=== PATIENT | male | born 1955 | race Caucasian/White ===

== ENCOUNTER → 2024-03-06 09:05 | Outpatient (REF) | payer MEDICARE, SELFPAY ==
[2024-03-06 12:39] LABS: % Basophils 0.9 % (0-2); % Eosinophils 2.7 % (0-6); % Immature Granulocytes 0.2 % (0-0.5); % Monocytes 9.1 % (1.7-9.3); % Neutrophils 66.1 % (42.2-75.2); Absolute Basophils 0.1 10^3/uL (0-0.2); Absolute Eosinophils 0.2 10^3/uL (0-0.7); Absolute Lymphocytes 1.2 10^3/uL (1.2-3.4); Absolute Monocytes 0.5 10^3/uL (0.1-0.6); Absolute Neutrophils 3.9 10^3/uL (1.4-6.5); Hematocrit 43.8 % (39.0-52.0); Hemoglobin 14.6 g/dL (13.0-18.0); Mean Corp Hgb Conc. 33.3 g/dL (33.0-37.0); Mean Corpuscular Hgb 30.2 pg (27.0-31.0); Mean Corpuscular Volume 90.7 fL (80.0-94.0); Mean Platelet Volume 9.6 fL (7.4-10.4); Nucleated Red Blood Cells % 0 % (-); Platelet Count 307 10^3/uL (130-400); Red Blood Cell Count 4.83 10^6/uL (4.70-6.10); Red Cell Dist. Width 12.4 % (11.5-14.5); White Blood Cell Count 5.9 10^3/uL (4.8-10.8)
[2024-03-06 12:58] LABS: ALT (SGPT) 14 U/L (0-50); AST (SGOT) 25 U/L (17-59); Albumin 4.3 g/dl (3.5-5.0); Alkaline Phosphatase 80 U/L (38-126); Blood Urea Nitrogen 13 mg/dl (9-20); Calcium 9.4 mg/dl (8.4-10.2); Carbon Dioxide 27 mmol/L (22-30); Chloride 102 mmol/L (98-107); Glucose 99 mg/dl (70-99); HDL Cholesterol 44 mg/dl; LDL Cholesterol, Calculated 107 mg/dl; Potassium 4.4 mmol/L (3.5-5.1); Sodium 136 mmol/L (135-145); Total Bilirubin 0.6 mg/dl (0.2-1.3); Total Cholesterol 175 mg/dl (50-199); Total Protein 7.1 g/dl (6.3-8.2); Triglyceride 123 mg/dl (10-149); Very Low Density Lipoprotein 24 mg/dl (0-30); eGFR > 60.00
[2024-03-06 13:18] LABS: PSA, Total - Screen 2.37 ng/ml (0.0-4.0)
== END ==
LOC: HWLAB 09:05
PROVIDERS: ATTENDING PHYSICIAN Internal Medicine
DX: Z00.00 Encounter for general adult medical examination without abnormal findings (principal); E66.9 Obesity, unspecified; K51.90 Ulcerative colitis, unspecified, without complications; G47.33 Obstructive sleep apnea (adult) (pediatric); Z12.5 Encounter for screening for malignant neoplasm of prostate; Z85.828 Personal history of other malignant neoplasm of skin; R35.1 Nocturia
CPT/HCPCS: 36415; 80053; 80061; 85025; G0103

== ENCOUNTER → 2025-02-14 09:15 | Outpatient (REF) | payer MEDICARE, SELFPAY ==
[2025-02-14 11:28] LABS: % Basophils 0.8 % (0-2); % Eosinophils 6.8 % (0-6); % Lymphocytes 18.7 % (20.5-51.1); % Monocytes 11.7 % (1.7-9.3); Absolute Eosinophils 0.4 10^3/uL (0-0.7); Absolute Monocytes 0.6 10^3/uL (0.1-0.6); Absolute Neutrophils 3.2 10^3/uL (1.4-6.5); Hematocrit 43.3 % (39.0-52.0); Hemoglobin 14.4 g/dL (13.0-18.0); Mean Corp Hgb Conc. 33.3 g/dL (33.0-37.0); Mean Corpuscular Hgb 30.1 pg (27.0-31.0); Mean Corpuscular Volume 90.4 fL (80.0-94.0); Mean Platelet Volume 9.1 fL (7.4-10.4); Nucleated Red Blood Cells % 0 % (-); Platelet Count 282 10^3/uL (130-400); Red Blood Cell Count 4.79 10^6/uL (4.70-6.10); Red Cell Dist. Width 13.1 % (11.5-14.5); White Blood Cell Count 5.1 10^3/uL (4.8-10.8)
[2025-02-14 12:09] LABS: ALT (SGPT) 15 U/L (0-50); AST (SGOT) 22 U/L (17-59); Alkaline Phosphatase 76 U/L (38-126); Blood Urea Nitrogen 15 mg/dl (9-20); Calcium 9.3 mg/dl (8.4-10.2); Carbon Dioxide 28 mmol/L (22-30); Chloride 103 mmol/L (98-107); Glucose 102 mg/dl (70-99); HDL Cholesterol 43 mg/dl; LDL Cholesterol, Calculated 111 mg/dl; Potassium 4.2 mmol/L (3.5-5.1); Sodium 140 mmol/L (135-145); Total Bilirubin 0.8 mg/dl (0.2-1.3); Total Cholesterol 170 mg/dl (50-199); Total Protein 6.8 g/dl (6.3-8.2); Triglyceride 83 mg/dl (10-149); Very Low Density Lipoprotein 16 mg/dl (0-30); eGFR > 60.00
[2025-02-14 16:51] LABS: PSA, Total - Screen 2.42 ng/ml (0.0-4.0); TSH Reflex To Free T4 1.56 uIU/ml (0.47-4.68)
== END ==
LOC: HWLAB 09:15
PROVIDERS: ATTENDING PHYSICIAN Internal Medicine
DX: K51.90 Ulcerative colitis, unspecified, without complications (principal); G47.33 Obstructive sleep apnea (adult) (pediatric); Z12.5 Encounter for screening for malignant neoplasm of prostate; E66.9 Obesity, unspecified; R35.1 Nocturia; R19.4 Change in bowel habit
CPT/HCPCS: 36415; 80053; 80061; 84443; 85025; G0103

== ENCOUNTER → 2025-02-21 10:36 | Outpatient (REF) | payer MEDICARE, SELFPAY | LOC: HWLAB 10:36 | PROVIDERS: ATTENDING PHYSICIAN Internal Medicine; FAMILY PHYSICIAN Internal Medicine | DX: K51.319 Ulcerative (chronic) rectosigmoiditis with unspecified complications (principal) | CPT/HCPCS: 83993 ==

== ENCOUNTER 2025-03-05 06:19 | Day surgery (SDC) | payer MEDICARE, SELFPAY | END 2025-03-05 12:15 | disposition home or self-care (01) | LOC: GI 06:19 | PROVIDERS: ATTENDING PHYSICIAN Internal Medicine | DX: K51.90 Ulcerative colitis, unspecified, without complications (principal) | CPT/HCPCS: 45380; 88305; 88342 ==

== ENCOUNTER → 2025-09-07 08:16 | Outpatient (REF) | payer MEDICARE, SELFPAY ==
[2025-09-10 02:06] LABS: Calprotectin, Fecal 216 ug/g (<=49)
== END ==
LOC: HWLAB 08:16
PROVIDERS: ATTENDING PHYSICIAN Internal Medicine; FAMILY PHYSICIAN Family Medicine
DX: K51.319 Ulcerative (chronic) rectosigmoiditis with unspecified complications (principal)
CPT/HCPCS: 83993; 87045; 87046; 87328; 87329; 87427

== ENCOUNTER 2025-09-11 08:58 | Inpatient (IN) | payer MEDICARE, SELFPAY ==
[2025-09-11] VITALS (10 sets, daily range): BP systolic 123–169; BP diastolic 66–112; BMI 33.5; BMI 31.6
[2025-09-11] MEDS: NSS 1000 IV ×3 (06:15→23:21)
--- NOTE | 2025-09-11 06:27 | ED.GENMED ---
History of Present Illness
General
Chief Complaint: Abdominal Pain
Source: patient
Exam Limitations: none
Time Seen by Provider: 09/11/25 06:02
Nursing documentation reviewed up to this point in time: agreed with
History of Present Illness
History of Present Illness:
69-year-old male with a past medical history of ulcerative colitis presents to the ER with his for evaluation of abdominal pain and constipation. Patient reports that last week he started to notice a small amount of blood in his stools; he
says that this is typically his presentation for ulcerative colitis flare in the past. He follows with Dr. Tobar for gastroenterology and informed his GI doctor about the symptoms�he was sent for an outpatient stool study which he provided on
Wednesday. He was prescribed mesalamine suppository and steroids but was told to hold off on taking these until stool study was finalized to rule out infection. He had not yet received the results of the stool study and so has not started these
medications. Over the weekend on Wednesday he began having abdominal pain and abdominal pain has persisted since then. He says he has been constipated and has not passed a stool and is passing minimal gas since Wednesday. Came to the ER for
evaluation. He describes cramping pain across the lower abdomen worse on the left side. He reports constipation and obstipation. He reports no nausea or vomiting. He denies fever or chills. He denies any other acute complaints. Review of
outpatient stool studies from 09/07/2025 shows that they were negative for acute infection.
Review of Systems
Review of Systems
All Other Systems: ROS reviewed and negative except as documented in HPI and ROS
Constitutional: Denies fever or chills
Respiratory: Denies trouble breathing
Cardiac: Denies chest pain
ABD/GI: Reports abdominal pain and constipated; Denies nausea, vomiting or diarrhea
: Denies flank pain
Musculoskeletal: Denies neck pain
Neurological: Denies headache
Phy Exam
Physical Exam
Physical Exam:
General: Awake, alert, oriented x3; no acute distress
Head: Normocephalic, atraumatic
Eyes: Conjunctiva normal, sclera anicteric
Throat: Airway intact, handling secretions
Neck: Trachea midline, supple without meningismus
Lungs: Clear to auscultation bilaterally, no wheezing, rales, rhonchi
Heart: Regular rate and rhythm, no murmurs, gallops, or rubs
Abd: Normoactive bowel sounds, soft, mildly distended, minimally tender in the left lower quadrant
Neuro: Grossly intact
Skin: Warm and dry
Extremities: No edema in extremities, warm and well-perfused
Scores
Heart Failure Risk
Heart Failure Risk Score: Not Applicable
Heart Score for Chest Pain Patients
STEMI patient?: Not applicable
Withdrawal Assessment of Alcohol
Withdrawal Assessment Completed?: Not applicable
Course
Orders/Labs/Results
Orders:
Orders
09/11/25 06:03
CT Abd/pelvis W Iv Cont Urgent
Comment:
Reason For Exam: abd pain, constipation
0.9% Sodium Chloride 1000 ml [Nss] 1,000 ml IV BOLUS
09/11/25 06:13
Comprehensive Metabolic Panel Urgent
Lipase Urgent
09/11/25 06:14
Complete Blood Count/With Diff Urgent
09/11/25 06:27
Morphine Sulfate 2 mg IV NOW STA
09/11/25 07:47
Consult Urology [UROLOGY CONSULT] Urgent
Consulting Provider: Toni Vera
Was physician already notified: Yes
Urinalysis Reflex To Culture Urgent
Abnormal Lab Results
09/11/25
06:14
Absolute Lymphs (auto) 1.0 L 10^3/uL
(1.2-3.4)
Absolute Monos (auto) 1.3 H 10^3/uL
(0.1-0.6)
Lymphocytes % 11.2 L %
(20.5-51.1)
Monocytes % 14.2 H %
(1.7-9.3)
09/11/25 06:14
09/11/25 06:13
Vital Signs
Initial and Last Documented VS:
Initial Vital Signs
Temp Pulse Resp BP Pulse Ox
36.4 C 75 18 169/112 98
09/11/25 05:49 09/11/25 05:49 09/11/25 05:49 09/11/25 05:49 09/11/25 05:49
Last Documented Vital Signs
Temp Pulse Resp BP Pulse Ox
36.4 C 75 18 167/96 97
09/11/25 05:49 09/11/25 05:49 09/11/25 05:49 09/11/25 06:11 09/11/25 06:33
MDM/Problems Addressed
Differential Diagnosis Includes:
Colitis/UC flare, constipation, bowel obstruction, diverticulitis, nephrolithiasis/UTI
MDM/Problems Addressed:
69-year-old male with history of ulcerative colitis presents with constipation and abdominal pain for the past few days; last week had some scant bloody stools and there was concern for early UC flare but he has not yet started treatment pending his
stool studies sent last week (I was able to review these results today and they were negative for infection). Hypertensive otherwise normal vitals. Physical exam as above. Plan to check labs including a CBC and a CMP, lipase. Provide fluids and
pain control. Check CT abdomen and pelvis. Reassess at the above.
Labs reviewed: CBC unremarkable, CMP no clinically significant abnormalities. CT abdomen pelvis shows very large 1.3 cm obstructive stone in the left ureter with hydronephrosis�suspect that this is the etiology of his pain. He does have some
constipation but no bowel obstruction. Urinalysis added. He is still having significant pain we will provide some additional pain medication. Case discussed with urology for consultation. Recommended n.p.o. for OR later today. Case discussed
with hospitalist for admission.
Chronic conditions affecting care:
Ulcerative colitis
Acute Exacerbation and/or Progression of Chronic Illness:
Acutely hypertensive�likely pain related, will treat pain but no indication for emergent hypertensives
Acute Exacerbation and/or Progression of Chronic Illness: HTN
*Radiology
Radiology exam reviewed: radiology read reviewed
*Pulse Oximetry
SaO2: 97
Oxygen Mode of Delivery: Room air
Patient hypoxic: no (97%)
*Critical Care Note
Total Time (30-74mins, 75-104mins- exclusive of procedures): Not Applicable
Data Reviewed
Source: patient, records and spouse
Patient Management
Discussion with other providers: Hospitalist (Discussed with hospitalist) and Plant Care Worker (Discussed with urologist)
Escalation/DeEscalation of care consider admission/obs:
Admission indicated
ED Attending Note
-
Portions of this chart may have been created with voice recognition software.� Occasional wrong word or��sound alike� substitutions may have occurred due to the inherent limitations of voice recognition software.
Discharge Plan
Departure
Patient Disposition: Admit
Date of Disposition: 09/11/25
Time of Disposition: 07:56
Admit to doctor: Miguel
Presentation/result/management discussed w/ accepting MD/DO: Hospitalist
Discharge Problem:
Left nephrolithiasis, Constipation
Referrals:
Gisselle Chanel DO [Family Provider, Family Practice]
Interventions
Interventions:
*Risk Screen - Suicide Last Done: 09/11/25 05:49
*General Assessment Last Done: 09/11/25 06:10
*Neglect/Abuse Screening Last Done: 09/11/25 06:10
*ED- Fall Risk Assessment Last Done: 09/11/25 06:10
*ED COVID-19 Vaccine History Last Done: 09/11/25 05:53
*ED Influenza Vaccine History Last Done: 09/11/25 05:53
XO-Bghzpc-Bfsopfqmez Assessment Last Done: 09/11/25 06:20
Discharge Date and Time
Print Language: VIETNAMESE
[2025-09-11 06:36] LABS: Hematocrit 43.6 % (39.0-52.0); Hemoglobin 14.9 g/dL (13.0-18.0); Mean Corp Hgb Conc. 34.2 g/dL (33.0-37.0); Mean Corpuscular Volume 87.6 fL (80.0-94.0); Nucleated Red Blood Cells % 0 % (-); Platelet Count 298 10^3/uL (130-400); Red Cell Dist. Width 12.9 % (11.5-14.5)
[2025-09-11] MEDS: MORPHINE SULFATE 2 MG IV (06:41)
[2025-09-11 06:42] LABS: ALT (SGPT) 12 U/L (0-50); AST (SGOT) 19 U/L (17-59); Albumin 4.4 g/dl (3.5-5.0); Alkaline Phosphatase 78 U/L (38-126); Blood Urea Nitrogen 18 mg/dl (9-20); Calcium 9.2 mg/dl (8.4-10.2); Carbon Dioxide 29 mmol/L (22-30); Chloride 102 mmol/L (98-107); Estimated Creatinine Clearance 74 ml/min; Glucose 93 mg/dl (70-99); Lipase 152 U/L (23-300); Potassium 4.0 mmol/L (3.5-5.1); Sodium 136 mmol/L (135-145); Total Protein 7.6 g/dl (6.3-8.2); eGFR > 60.00
--- NOTE | 2025-09-11 08:09 | HPS.HSE ---
Family Physician
-
Family Physician: Gisselle Chanel DO
Chief Complaint
-
Abdominal pain
History of Present Illness
69-year-old male with past medical history of ulcerative colitis (diagnosed 18 years ago), BPH presents to the ER reporting abdominal pain and constipation. Patient started to notice small amount of blood in the stools 3 days ago, thought it might
be because of his ulcerative colitis flare. He follows up with Dr. Tobar for gastroenterology who sent outpatient stool study on Wednesday. He was prescribed mesalamine suppositories/steroids but he has not started taking these medications. Patient
began to have abdominal pain in the left lower quadrant since 3 days, radiating to the groin. Patient reports he has not had a bowel movement since 3 days, minimal amount of gas.he took MiraLAX twice, without any relief. Patient denies any
nausea/vomiting, fever/chills, chest pain, SOB, hematemesis, hematuria. Patient was admitted in the hospital only once, for ulcerative colitis flare at the time of initial diagnosis. No history of intra-abdominal surgeries. Patient reports that
he has been drinking less water, as he is concerned about his BPH.
ED course�elevated blood pressure reading 167/96 at presentation, afebrile. Blood work unremarkable, urinalysis pending. He was given IV fluids, morphine, Dilaudid for pain.
Abdomen/pelvis CT with evidence of 1.3 cm proximal left ureteral calculus with mild left hydro utero nephrosis.
Medical History
Past Medical History
Past Medical History: Reports Other (Ulcerative colitis)
Past Surgical History: Reports None
Social History
Tobacco: Non-smoker
Alcohol: None
Drug: None
Personal:
Living: With Family
Employment: Employed
Family History
Family History: Not pertinent (Mom - colitis)
Allergies / Home Medications
Allergies reflects when Allergies were last updated in [employer].
Home Medications with original date entered in [employer]
Allergy/Medication List:
Allergies
Allergy/AdvReac Type Severity Reaction Status Date / Time
No Known Allergies Allergy Verified 09/11/25 06:23
Review of Systems
-
A 12 point ROS was completed and negative except as noted: Yes
Physical Exam
Vital Signs
Vital Signs
Temp Pulse Resp BP Pulse Ox
97.6 F 75 18 167/96 97
09/11/25 05:49 09/11/25 05:49 09/11/25 05:49 09/11/25 06:11 09/11/25 06:33
Physical Exam
General: Well Developed, Well Nourished and Pain
HEENT: NormoCephalic and Atraumatic
Respiratory: Clear
Cardiac: S1/S2
GI: Soft, Normal Bowel Sounds, Tender (Very mild tenderness to palpation in the left lower quadrant. No guarding, rigidity.) and Distended
Genito-urinary: No costovertebral tender
Skin: Warm and Dry
Neuro: Awake, Alert, Oriented and AO x 3
Laboratory Results
-
09/11/25 06:14
09/11/25 06:13
Laboratory Results
Total Bilirubin 0.8 mg/dl (0.2-1.3) 09/11/25 06:13
AST 19 U/L (17-59) 09/11/25 06:13
ALT 12 U/L (0-50) 09/11/25 06:13
Alkaline Phosphatase 78 U/L (38-126) 09/11/25 06:13
Lipase 152 U/L (23-300) 09/11/25 06:13
Impression/Plan
-
IMPRESSION: 69-year-old male with ulcerative colitis, BPH presenting with left lower abdominal pain and constipation.
PLAN:
#Abdominal pain
#Left ureteral calculus
Normal white count, afebrile
Renal function normal
Urinalysis -microscopic hematuria, no evidence of infection.
CT evidence of 1.3 cm proximal left ureteral calculus with associated mild left hydroureteronephrosis.
Urology consulted
Plan for OR today
IV fluids
Adequate pain control
NPO
Will give a dose of prophylactic antibiotic Ancef 2 g IV ,before OR
#Constipation
CT abdomen pelvis�no evidence of obstruction/inflammatory changes. Moderate right colonic stool burden.
Will do MiraLAX
#Ulcerative colitis
Continue mesalamine 2.4 mg twice daily
#BPH
Not on medications
Diet�n.p.o.
DVT prophylaxis�SCDs
Full code
[2025-09-11] MEDS: DILAUDID 1 MG IV (08:28)
[2025-09-11 08:29] LABS: Urine Character Clear (Clear)
[2025-09-11 09:01] LABS: Urine Urothelial Cell 0-2 /LPF (FEW)
[2025-09-11 09:02] LABS: Urine Red Blood Cell 26-30 /HPF (0-2)
--- NOTE | 2025-09-11 09:23 | W.PN.URO.CBU ---
Today's Communication / Plan
-
for op room today npo
Assessment / Plan
-
left uretral stone for cysto stent possible laser Consented and discussed decisions for surgery alt tx plans side effects comploications
Diagnosis
-
Date of Service: September 11, 2025
-
Patient Diagnosis:13 mm left ureteral stone with intractable
Post Op Day:
Subjective
-
colic no fever nor chills
Objective
-
Vital Signs
Temp Pulse Resp BP Pulse Ox
97.6 F 75 18 167/96 97
09/11/25 05:49 09/11/25 05:49 09/11/25 05:49 09/11/25 06:11 09/11/25 06:33
Laboratory Results
09/11/25 06:14
09/11/25 06:13
Review of Systems
-
Abdomen/GI: Nausea
: Flank Pain
Physical Exam
-
General - well developed, well nourished, no acute distress non toxic
Chest - clear bilaterally
Abdomen - soft, non-tender, positive bowel sounds, no CVAT, no incisional pain or distention
Genitalia - normal
Rectal - normal
Skin - warm & dry with no rash
Neuro - AOx3, no motor deficits
Extremities - no clubbing, no cyanosis, no edema
Incision - clean, dry
Dressing - clean, dry, intact
Counseling
-
for op room today
Care Review
Data Reviewed
Discussed with: Hospitalist, Nursing and Family
CT Scan: Image Pers Reviewed
[2025-09-11] MEDS: ANCEF 10 IV (09:50)
--- NOTE | 2025-09-11 09:53 | CM ---
Chart reviewed and spoke with patient and Yudy at ED bedside
Lives in a 2 story home with . 4 small PAT
Independent with ADLs, ambulation and drives
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
DME CPAP
PCP Dr. Gisselle Chanel
RX plan yes
Pharmacy [facility]
no hx of SNF nor VN
DCP is to go home
can drive
CM will continue to follow up for any dcp needs
--- NOTE | 2025-09-11 09:57 | W.PN.UPDATE ---
Update Note
Progress Note Update
I interviewed and examined the patient. Discussed with Dr. Campo and agree with findings and plan as documented in note.
69 years old male presented with abdominal pain. Patient reported he was having constipation. He felt abdominal discomfort could be related to ulcerative colitis flareup. He took laxative without relief. No nausea or vomiting. In the ER, CAT
scan showed 1.3 cm proximal left ureteral calculus with mild left hydronephrosis. Patient did not have fever or chills. No dysuria. No leukocytosis on admission
Physical Exam
General: Well Developed, Well Nourished and Pain
HEENT: NormoCephalic and Atraumatic
Respiratory: Clear
Cardiac: S1/S2
GI: Soft, Normal Bowel Sounds, Tender (Very mild tenderness to palpation in the left lower quadrant. No guarding, rigidity.) and Distended
Genito-urinary: No costovertebral tender
Skin: Warm and Dry
Neuro: Awake, Alert, Oriented and AO x 3
Psych;'calm
# Left renal colic causing abdominal pain
#Left ureteral calculus
Normal white count, afebrile
Renal function normal
Urinalysis -microscopic hematuria, no evidence of infection.
CT evidence of 1.3 cm proximal left ureteral calculus with associated mild left hydroureteronephrosis.
Urology consulted
Plan for OR today
IV fluids
Adequate pain control
NPO
Will give a dose of prophylactic antibiotic Ancef 2 g IV ,before OR
#Constipation
CT abdomen pelvis�no evidence of obstruction/inflammatory changes. Moderate right colonic stool burden.
Will do MiraLAX
#Ulcerative colitis
Continue mesalamine 2.4 mg twice daily
#BPH
Not on medications
Diet�n.p.o.
DVT prophylaxis�SCDs
Full code
Total time spent to see the patient, examined the patient, review of data and lab result, discuss treatment plan with patient, nursing staff, patient's , ER doctor around 75 minutes
[2025-09-11] MEDS: NON-FORMULARY ITEM PO (10:45)
--- NOTE | 2025-09-11 15:29 | W.IMMPOSTOP ---
Surgical Immed Post Op Note
-
Primary Surgeon:
alicia
Assisting Surgeon:
Pre-op Diagnosis:
left ureteral stone
Post-op Diagnosis:
same
Procedure Performed:
cysto/left retrograde/stone manipulation/stent
Anesthesia Type:
gen
Specimen / Cultures:
none
Estimated Blood Loss:
2cc
Complications:
none
Operative Findings:
BPH with large median lobe
high/large stone
stent placed
to pacu in stable condition
once medically stable/bowel issues resolved- discharge with outpt f/u with dr pearl to schedule second stage procedure
[2025-09-11] MEDS: FLOMAX 0.4 MG PO (15:47)
[2025-09-11] MEDS: FLOMAX PO (16:16)
[2025-09-11] MEDS: DILAUDID 0.5 MG IV (17:06)
[2025-09-11] MEDS: MIRALAX 17 GRAMS PO (19:53)
[2025-09-11] MEDS: NON-FORMULARY ITEM 2 UNIT PO (19:57)
[2025-09-12] MEDS: NSS 1000 IV (06:31)
[2025-09-12 07:00] VITALS: BP 127/73
[2025-09-12] MEDS: FLOMAX 0.4 MG PO (08:05)
[2025-09-12] MEDS: NON-FORMULARY ITEM 1 UNIT PO (08:05)
[2025-09-12] MEDS: METAMUCIL, KONSYL 1 PACKET PO (08:05)
[2025-09-12] MEDS: VISBIOME 1 CAP PO (08:05)
[2025-09-12] MEDS: MIRALAX 17 GRAMS PO (08:05)
[2025-09-12 08:34] LABS: Hematocrit 39.9 % (39.0-52.0); Hemoglobin 13.0 g/dL (13.0-18.0); Mean Corp Hgb Conc. 32.6 g/dL (33.0-37.0); Mean Corpuscular Volume 90.9 fL (80.0-94.0); Platelet Count 287 10^3/uL (130-400); Red Cell Dist. Width 12.7 % (11.5-14.5)
[2025-09-12 10:01] LABS: Blood Urea Nitrogen 14 mg/dl (9-20); Calcium 8.8 mg/dl (8.4-10.2); Carbon Dioxide 25 mmol/L (22-30); Chloride 104 mmol/L (98-107); Estimated Creatinine Clearance 85 ml/min; Glucose 102 mg/dl (70-99); Potassium 4.3 mmol/L (3.5-5.1); Sodium 134 mmol/L (135-145); eGFR > 60.00
--- NOTE | 2025-09-12 10:07 | W.PN.HOSP.TC ---
Addendum entered and electronically signed by Bk Leung MD 09/12/25 17:25:
Addendum
Discharge nurse went to discharge patient but he reported he was having abdominal cramps and was not comfortable going home. Concern regarding flareup of ulcerative colitis.
I saw the patient again. He had good large bowel movement, nonbloody after rectal suppository. He is feeling better but having cramps. I talked to his a primary horseradish grinder. Will do GI evaluation before discharge
End
Addendum entered and electronically signed by Bk Leung MD 09/12/25 14:51:
Addendum
Had BM, will dc
Original Note:
Today's Communication/Plan
-
Patient wants to have BM before dc
Assessment / Plan
Assessment / Plan
Physical Exam
General: Well Developed, Well Nourished and Pain
HEENT: NormoCephalic and Atraumatic
Respiratory: Clear
Cardiac: S1/S2
GI: Soft, Normal Bowel Sounds, no tenderness, pt feels still mildly distended.
Genito-urinary: No costovertebral tender
Skin: Warm and Dry
Neuro: Awake, Alert, Oriented and AO x 3
Psych;'calm
# Left renal colic causing abdominal pain
#Left ureteral calculus
s/p Cystoscopy, left retrograde pyelogram and stone manipulation, stent placement by DR Sauceda 09/11. No complications reported. Patient is doing much better. Discussed with urologist, okay to go home. No evidence of
Active UTI. No need for antibiotics. Started on Flomax. For outpatient follow-up
#Constipation
No abd pain or nausea
CT abdomen pelvis�no evidence of obstruction/inflammatory changes. Moderate right colonic stool burden.
did MiraLAX BID, will do suppository / Enema. pt wants to have BM before leaving
He is walking around
had IVF
#Ulcerative colitis
Continue mesalamine 2.4 mg twice daily
#BPH
Not on medications
Diet�n.p.o.
DVT prophylaxis�SCDs
Full code
Total time spent to see the patient, examined the patient, review of data and lab result, discuss discharge plan with patient, of pt, urologist, nursing staff around 67 minutes
Anticipated Discharge: Today
Subjective/Interval History
-
Date of Service: September 12, 2025
He feels better
No abdominal pain
Mild dysuria at times
He reports constipation
Objective Data
-
Labs:
Laboratory Results
09/12/25
07:41
WBC 8.2
Hgb 13.0
Hct 39.9
Plt Count 287
Sodium 134 L
Potassium 4.3
Chloride 104
Carbon Dioxide 25
BUN 14
Creatinine 0.9
Glucose 102 H
Calcium 8.8
Vital Signs:
Vital Signs
Temp Pulse Resp BP Pulse Ox
97.6 F 55 16 127/73 99
09/12/25 07:00 09/12/25 07:00 09/12/25 07:00 09/12/25 07:00 09/12/25 07:00
I&O
09/11/25 09/12/25 09/13/25
06:59 06:59 06:59
Intake Total 1055 / 1055
Output Total 225 / 225
Balance 830 / 830
[2025-09-12] MEDS: DULCOLAX 10 MG RECTAL (10:29)
--- NOTE | 2025-09-12 11:50 | W.PN.URO.CBU ---
Today's Communication / Plan
-
ready for d/c when ok by hospitalist
Assessment / Plan
-
left uretral stone s/p j stent has stent pain but colic gone willschedue defintve surgery next 2wweks as haylie has lg median lobe with urinary frequncy to start
Diagnosis
-
Date of Service: September 12, 2025
-
Patient Diagnosis:
Post Op Day:
Patient Diagnosis:13 mm left ureteral stone with intractable pain
Post Op Day:
Subjective
-
colic gone s/p jj stent but freqincy urgency
Objective
-
Vital Signs
Temp Pulse Resp BP Pulse Ox
97.6 F 55 16 127/73 99
09/12/25 07:00 09/12/25 07:00 09/12/25 07:00 09/12/25 07:00 09/12/25 07:00
Intake and Output
09/11/25 09/12/25 09/13/25
06:59 06:59 06:59
Intake Total 1055 / 1055
Output Total 225 / 225
Balance 830 / 830
Intake:
Oral fluids 480 / 480
IV fluids (Total) 575 / 575
Normosol 200 / 200
Output:
Urine, Voided 225 / 225
Other:
Number of approximated MODERATE 1
amounts of urine
Laboratory Results
09/12/25 07:41
09/12/25 07:41
Review of Systems
-
: Frequency and Urgency
Physical Exam
-
General - well developed, well nourished, no acute distress
Chest - clear bilaterally
Abdomen - soft, non-tender, positive bowel sounds, no CVAT, no incisional pain or distention
Genitalia - normal
Rectal - normal
Skin - warm & dry with no rash
Neuro - AOx3, no motor deficits
Extremities - no clubbing, no cyanosis, no edema
Incision - clean, dry
Dressing - clean, dry, intact
Counseling
-
malone per hospitalist
Care Review
Data Reviewed
Discussed with: Hospitalist
--- NOTE | 2025-09-12 13:29 | CM ---
CM reviewed chart, patient seen bedside- reports waiting to have a bowel movement.
Patient reports no needs upon d.c, confirms transport home.
CM will continue to follow for all d/c planning needs.
Plan; home no needs when stable
[2025-09-12 15:30] VITALS: BP 146/76
--- NOTE | 2025-09-12 16:18 | PTCARENOTE ---
Rn clinical project coordinator-Patient cleared for discharge. Patient states that he doesn't feel well enough to go home. Communicating this to primary nurse and Dr Leung.
[2025-09-12] MEDS: DILAUDID 0.5 MG IV ×2 (17:13→22:21)
[2025-09-12] MEDS: MIRALAX PO (20:39)
[2025-09-12] MEDS: ASACOL, DELZICOL DR 2400 MG PO (20:41)
[2025-09-12 23:43] VITALS: BP 131/74
[2025-09-13] MEDS: TYLENOL 1000 MG PO (03:10)
--- NOTE | 2025-09-13 06:36 | CON.GI ---
Addendum entered and electronically signed by Mica Xavier Do, MD 09/13/25 11:33:
I saw and examined the patient.
The LEADER TIER's note was reviewed and I agree with the note.
Comment: Kye is a 69yo M with h/o UC diagnosed at 51 on mesalamine followed by Dr Tobar/GI who was admitted for constipation. Trigger was likely recent kidney stones. With bowel regimen he is having good evacuations and no further abd pain. He
requested to see GI but last night spoke to Dr Tobar via phone and has a good plan in place. He is eager for d/c today. Vitals stable exam NTTP. NABS. Labs reviewed
Impression
- Acute constipation
- Recent kidney stone with urology stent
- H/o UC
- Obesity
Recommendations
- C/w oral mesalamine
- C/w miralax half cap daily
- Monitor stool output
- Use canasa PRN basis
Ok from GI perspective for hosp d/c today. Will sign off please call for ?
Original Note:
Consultation
-
Date/Time Consultation Requested: 09/12/25 1620
Date/Time Consultation Performed: 09/13/25 0730
Requesting Provider: Angela Leung MD
Performing Provider: JODI Ornelas, Mica Tucker MD
Reason for Consultation: eval for UC flare
Medical History
Chief Complaint / HPI
History of Present Illness:
Pt is a 69yo with hx longstanding ulcerative colitis since age 51, BPH, prior PNA with outpatient follow with Dr. Tobar. He had stable disease with use of Mesalamine for years with occasional steroid use. He was seen last spring with concern for
flare. hew as placed on Mesalamine suppository then oral steroids. At that time he increased Mesalamine from 2 tabs to 4 tabs. He completed colonoscopy 03/2025 [place] [facility] ulcerative colitis with inflammation from rectum to cecum up to 35 cm
descending, transverse, hepatic flexure, ascending and cecum were normal bx left sided with chronic active colitis with ulceration CMV neg, right sided biopsy neg. Pt call last week with 4-5 day flare with mucous, urgency, constipation that was not
typical for flare. Pt was instructed to obtain stool studies with steroids and mesalamine suppositories sent and instructed not to use until stool completed. 09/07 stool cx, Giardia/crypto completed and negative and c-diff cancelled. Pt then
presented to 09/11 with abdominal pain and constipation. In ER CT was completed with 1.3 cm proximal left ureteral calculus with mild left hydroureteronephrosis. Pt was seen by urology and completed cysto, left retrograde/stone
manipulation/stent with noted BPH with large median lobe, high/large stone and stent placement with plan for OP follow up. During admission pt with constipation and on time for discharge was noted with crampy abdominal pain. He had large BM and non
bloody stool with several more stool overnight. Asked to see for GI plan.
In review with patient he is feeling much better. He spoke and reviewed plan with Dr. Tobar last PM. He currently admits to mild left flank pain but denies dysphagia, odynophagia, GERD, nausea, vomiting, abdominal pain, diarrhea or current
blood in stool.
Outpatient testing
03/05/25 colonoscopy [facility] ulcerative colitis with inflammation from rectum to cecum up to 35 cm descending, transverse, hepatic flexure, ascending and cecum were normal bx left sided with chronic active colitis with ulceration CMV neg, right
sided biopsy neg.
-fecal nura- 02/21/2025- 256, 09/07/25 216
09/07/25- stool cutlure neg
Past Medical History
Past Medical History: Other (ulcerative colitis, PNA, BPH, renal stone )
Social History
Tobacco: Non-Smoker
Alcohol: None
Drug: None
Personal:
Living: With Family
Employment: Employed
Family History
Family History: Other (mother with hx ulcerative colitis )
Allergies / Home Medications
Allergy/AdvReac Type Severity Reaction Status Date / Time
No Known Allergies Allergy Verified 09/11/25 06:23
�Medication �Instructions �Recorded
Cod Liver Oil Supplement 1 dose PO DAILY Supplement 09/11/25
Lactobacillus acidophilus 10 10,000 mmu cells PO DAILY 09/11/25
billion cell capsule (Probiotic) Supplement
Prostate Health Supplement 1 dose PO DAILY Supplement 09/11/25
Wheat Grass Supplement 1 dose PO DAILY Supplement 09/11/25
blue-green algae (bulk) (Spirulina 1 ea miscellaneous BID Supplement 09/11/25
powder)
cholecalciferol (vitamin D3) 50 50 mcg PO DAILY Supplement 09/11/25
mcg (2,000 unit) tablet (Vitamin
D3)
coenzyme Q10 10 mg capsule 30 mg PO DAILY Supplement 09/11/25
loratadine 10 mg tablet (Claritin) 10 mg PO DAILY Allergies 09/11/25
mesalamine 1.2 gram tablet,delayed 2.4 g PO BID Gastrointestinal Issue 09/11/25
release (Lialda)
nutritional supplement-fiber oral 1 ea PO BID Supplement 09/11/25
liquid
psyllium 1 packet PO DAILY Constipation 09/11/25
red yeast rice 600 mg capsule 600 mg PO HS Supplement 09/11/25
tamsulosin 0.4 mg capsule 0.4 mg PO DAILY #30 caps 09/12/25
Review of Systems
-
History Source: Patient and Family
Constitutional: Reports No Symptoms
EENT: Reports No Symptoms
Respiratory: Reports No Symptoms
Cardiac: Reports No Symptoms
Abdomen/GI: Reports Abdominal Pain (last PM now resolved ) and Constipated (now improved )
: Reports No Symptoms
Musculoskeletal: Reports No Symptoms
Skin: Reports No Symptoms
Neurological: Reports No Symptoms
Endocrine: Reports No Symptoms
Hematologic/Lymphatic: Reports No Symptoms
Vital Signs
Temp Pulse Resp BP Pulse Ox
98.3 F 66 16 131/74 95
09/12/25 23:43 09/12/25 23:43 09/12/25 23:43 09/12/25 23:43 09/12/25 23:43
Physical Exam
Exam
General: Well Developed, Well Nourished and No Apparent Distress
HEENT: Normocephalic and Anicteric
Respiratory: Clear
Cardiac: Regular Rhythm
GI: Soft, Non Tender and Non Distended
Musculoskeletal: No Clubbing and No Cyanosis
Skin: Warm and Dry
Neuro: Awake, Alert and AO x 3
Psych: Calm
Results
WBC 8.2 10^3/uL (4.8-10.8) 09/12/25 07:41
Hgb 13.0 g/dL (13.0-18.0) 09/12/25 07:41
Hct 39.9 % (39.0-52.0) 09/12/25 07:41
MCV 90.9 fL (80.0-94.0) 09/12/25 07:41
Plt Count 287 10^3/uL (130-400) 09/12/25 07:41
Absolute Neuts (auto) 6.5 10^3/uL (1.4-6.5) 09/11/25 06:14
Sodium 134 mmol/L (135-145) L 09/12/25 07:41
Potassium 4.3 mmol/L (3.5-5.1) 09/12/25 07:41
Chloride 104 mmol/L (98-107) 09/12/25 07:41
Carbon Dioxide 25 mmol/L (22-30) 09/12/25 07:41
BUN 14 mg/dl (9-20) 09/12/25 07:41
Creatinine 0.9 mg/dL (0.7-1.3) 09/12/25 07:41
Calcium 8.8 mg/dl (8.4-10.2) 09/12/25 07:41
Total Bilirubin 0.8 mg/dl (0.2-1.3) 09/11/25 06:13
AST 19 U/L (17-59) 09/11/25 06:13
ALT 12 U/L (0-50) 09/11/25 06:13
Alkaline Phosphatase 78 U/L (38-126) 09/11/25 06:13
Lipase 152 U/L (23-300) 09/11/25 06:13
Diagnostic Image Results:
09/11/25 CT A/p with IV contrast --1.3 cm proximal left ureteral calculus with associated mild left hydroureteronephrosis.
Prior GI Procedures:
Colonoscopy: 03/05/25 [facility] [place] [facility] ulcerative colitis with inflammation from rectum to cecum up to 35 cm descending, transverse, hepatic flexure, ascending and cecum were normal bx left sided with chronic active colitis with ulceration CMV neg,
right sided biopsy neg.
Assessment / Plan
-
Pt is a 69yo with hx longstanding ulcerative colitis since age 19, BPH, prior PNA with outpatient follow with Dr. Tobar. He had stable disease with use of Mesalamine 3 tablets daily for years. He was seen last spring with concern for flare. hew
as placed on Mesalamine suppository then oral steroids. He completed colonoscopy 03/2025 [place] 1 ulcerative colitis with inflammation from rectum to cecum up to 35 cm descending, transverse, hepatic flexure, ascending and cecum were normal bx left
sided with chronic active colitis with ulceration CMV neg, right sided biopsy neg. Pt call last week with 4-5 day flare with mucous, urgency, diarrhea Pt was instructed to obtain stool studies with steroids and mesalamine suppositories sent and
instructed not to use until stool completed. 09/07 stool cx, giardia/crypto completed and negative and c-diff cancelled. Pt then presented to 09/11 with abdominal pain and constipation. In ER CT was completed with 1.3 cm proximal left ureteral
calculus with mild left hydroureteronephrosis. Pt was seen by urology and completed cysto, left retrograde/stone manipulation/stent with noted BPH with large median lobe, high/large stone and stent placement with plan for OP follow up. During
admission pt with constipation and on time for discharge was noted with crampy abdominal pain. He had large BM and non bloody stool but asked to see for GI follow up. 09/07 stool cx, giardia/crypto neg c-diff canceled, fecal nura 216.
-left ureteral calculus with mild left hydroureteronephrosis s/p cysto/stone manipulation/stent
-constipation
-hx ulcerative colitis with recent bleeding now resolved
other med problems:
-BPH
PLAN:
Etiology of symptoms likely constipation likely secondary to urologic process, no bleeding, mucous or signs of current UC flare
09/12 s/p Dulcolax, Miralax and Metamucil with large stool then several smaller stools overnight
stool studies 09/07 neg c-diff canceled with formed stool
cont Mesalamine 2400mg BID
cont diet
cont plan as per Dr. Tobar-- if patient develops bleeding proceed with Melamine suppository for 72 hours-- if continued bleeding then steroid course, if no bleeding hold on treatment
also discussed with patient would continue fiber/flax seed regiment along with Miralax daily to prevent constipation as still need 2nd urologic procedure. discussed increasing Miralax as needed if still with constipation. When urologic issue
improved can try to wean off Miralax
call GI office with any other problems
all questions answered
stable from GI for discharge
-
-
Thank you for consultation and allowing me to participate in the patient's care. Please call the distance education director GI physician during the after hours with any questions or concerns.
[2025-09-13 08:09] VITALS: BP 144/88
[2025-09-13] MEDS: VISBIOME 1 CAP PO (09:49)
[2025-09-13] MEDS: ASACOL, DELZICOL DR 2400 MG PO (09:49)
[2025-09-13] MEDS: MIRALAX PO ×2 (09:50→09:58)
[2025-09-13] MEDS: METAMUCIL, KONSYL PO ×2 (09:50→09:58)
[2025-09-13] MEDS: FLOMAX 0.4 MG PO (09:50)
--- NOTE | 2025-09-13 10:21 | W.PN.HOSP.TC ---
Today's Communication/Plan
-
dc
Assessment / Plan
Assessment / Plan
Physical Exam
General: Well Developed, Well Nourished and Pain
HEENT: NormoCephalic and Atraumatic
Respiratory: Clear
Cardiac: S1/S2
GI: Soft, Normal Bowel Sounds, no tenderness, not distended.
Genito-urinary: No costovertebral tender
Skin: Warm and Dry
Neuro: Awake, Alert, Oriented and AO x 3
Psych;'calm
# Left renal colic causing abdominal pain
#Left ureteral calculus
s/p Cystoscopy, left retrograde pyelogram and stone manipulation, stent placement by DR Sauceda 09/11. No complications reported. Patient is doing much better. Discussed with urologist, okay to go home. No evidence of
Active UTI. No need for antibiotics. Started on Flomax. For outpatient follow-up
#Constipation, resolved and feels better with no pain or tenderness.
No abd pain or nausea
He was seen by GI also, recommend to c/w MiraLAX.
#Ulcerative colitis
Continue mesalamine 2.4 mg twice daily
#BPH
Not on medications
DVT prophylaxis�SCDs
Full code
Total discharge time spent to see the patient, examined the patient, review of data and lab result, discuss discharge plan with patient,search consultant GI, nursing staff around 67 minutes
Anticipated Discharge: Today
Subjective/Interval History
-
Date of Service: September 13, 2025
He feels better, no abd pain
No urinary retention, no hematuria
Wants to go home
Objective Data
-
Vital Signs:
Vital Signs
Temp Pulse Resp BP Pulse Ox
97.8 F 58 17 144/88 96
09/13/25 08:09 09/13/25 08:09 09/13/25 08:09 09/13/25 08:09 09/13/25 08:09
I&O
09/12/25 09/13/25 09/14/25
06:59 06:59 06:59
Intake Total 1055 / 1055
Output Total 225 / 225
Balance 830 / 830
--- NOTE | 2025-09-13 12:04 | CM ---
Met patient at bedside with Yudy & dtr Cherelle
IMM explained & signed. In chart
discharge today
PLAN: Home, no needs
family to transport
--- NOTE | 2025-09-14 07:09 | W.DCSUMMARY ---
Discharge Summary
Discharge Data
Date of Admission: 09/11/25
Date of Discharge: 09/13/25
-
Pending Results: No
Hospital Course
69 years old male presented with abdominal pain. Scan of the abdomen pelvis showed left ureteral stent with mild hydronephrosis. Patient did not have fever or chills. No leukocytosis. Patient was evaluated by urologist. He underwent cystoscopy
with stent placement by Dr. Sauceda on 09/11/25 with no complications. Urologist recommended Flomax upon discharge. Scan of the abdomen showed signs of constipation. Patient was given bowel regimen. Patient had multiple bowel movements with
resolution of abdominal discomfort. He was also evaluated by tail edger recommended to continue taking MiraLAX. Patient remained hemodynamically stable was discharged home in stable condition.
Discharge Plan
-
Patient Disposition: Home (Routine Discharge)
Discharge Diagnosis/Procedures: -Obstructing left ureteral stone.
-Constipation
Diet: As tolerated
Referrals:
Toni Vera MD [Active, Urology]
Referral Note: call urology [phone] to set up next phase of treatment or if questions or problems Expect frequency urgency and blood in urine
Gisselle Chanel DO [Family Provider, Family Practice]
Prescriptions:
New
tamsulosin 0.4 mg Capsule
0.4 mg PO DAILY Qty: 30 0RF
polyethylene glycol 3350 [Miralax] 17 gram powder in packet
17 g PO DAILY Qty: 30 0RF
Continued
psyllium Packet
1 packet PO DAILY
coenzyme Q10 10 mg Capsule
30 mg PO DAILY
loratadine [Claritin] 10 mg Tablet
10 mg PO DAILY
nutritional supplement-fiber Liquid
1 ea PO BID
red yeast rice 600 mg Capsule
600 mg PO HS
mesalamine [Lialda] 1.2 gram Tablet,Delayed Release (Dr/Ec)
2.4 g PO BID
cholecalciferol (vitamin D3) [Vitamin D3] 50 mcg (2,000 unit) Tablet
50 mcg PO DAILY
Probiotic 10 billion cell Capsule
10,000 mmu cells PO DAILY
Spirulina Powder
1 ea miscellaneous BID
Cod Liver Oil Supplement
1 dose PO DAILY
Prostate Health Supplement
1 dose PO DAILY
Wheat Grass Supplement
1 dose PO DAILY
Discharge Orders:
Discharge Patient (As Directed); Ordered 09/13/25
Ordered By: Bk Leung
Discharge Date and Time
Discharge Date/Time: 09/13/25 12:50
Print Language: MEXICAN
== END 2025-09-13 12:50 | disposition home or self-care (01) | DRG 660 ==
LOC: 4 WEST ACU 08:58
PROVIDERS: Specialist; Student in an Organized Health Care Education/Training Program; ADMITTING PHYSICIAN Internal Medicine; ATTENDING PHYSICIAN Internal Medicine; CONSULT PHYSICIAN Specialist; EMERGENCY PHYSICIAN Emergency Medicine; FAMILY PHYSICIAN Internal Medicine; OTHER PHYSICIAN Internal Medicine Gastroenterology
PROC: BT1F1ZZ Fluoroscopy of Left Kidney, Ureter and Bladder using Low Osmolar Contrast (ICD-10-PCS; 2025-09-11)
PROC: 0T778DZ Dilation of Left Ureter with Intraluminal Device, Via Natural or Artificial Opening Endoscopic (ICD-10-PCS; 2025-09-11)
DX: N13.2 Hydronephrosis with renal and ureteral calculous obstruction (principal); K51.911 Ulcerative colitis, unspecified with rectal bleeding; K59.00 Constipation, unspecified; E66.9 Obesity, unspecified; Z68.31 Body mass index [BMI] 31.0-31.9, adult; Z87.442 Personal history of urinary calculi
CPT/HCPCS: 74177; 74420; 76000; 80048; 80053; 81003; 81015; 83690; 85025; 85027; 96361; 96374; 96375; 99285; A4300; C1758; Q9967

== ENCOUNTER 2025-09-20 06:00 | Day surgery (SDC) | payer MEDICARE, SELFPAY ==
[2025-09-20] VITALS (9 sets, daily range): BP systolic 124–165; BP diastolic 75–94; BMI 31.4
[2025-09-20] MEDS: NORMOSOL-R/PLASMALYTE-A 1000 IV (06:39)
[2025-09-20 07:23] LABS: Urine Character Clear (Clear)
[2025-09-20 08:07] LABS: Urine Red Blood Cell 30-40 /HPF (0-2)
[2025-09-20 08:08] LABS: Urine White Cell 16-20 /HPF (0-5)
[2025-09-20] MEDS: DILAUDID 0.25 MG IV ×2 (09:23→09:35)
== END 2025-09-20 10:55 | disposition home or self-care (01) ==
LOC: SDS 06:00
PROVIDERS: ATTENDING PHYSICIAN Specialist
DX: N20.2 Calculus of kidney with calculus of ureter (principal)
CPT/HCPCS: 52356; 74018; 76000; 81003; 81015; 82365; 87086; 93005